=== PATIENT | male | born 1990 | race Caucasian/White ===

== ENCOUNTER 2019-10-24 12:11 | Emergency (ER) | payer OTHER ==
[~2019-10-24] VITALS: Ht 182.9 cm; Wt 90.7 kg
[2019-10-24 13:19] VITALS: BP 137/81
--- NOTE | 2019-10-24 13:25 | RAD ---
Examination: FINGER(S) LEFT History: Pain and laceration involving the second and fourth digits due to compression injury Comparison/Correlation: None Findings: Total of 3 images of the left hand were obtained. Evaluation of the fourth digit on the lateral view is limited due to positioning. Joint spaces are normal. No displaced fracture or bone destruction. Soft tissues are grossly unremarkable. No radiopaque foreign body. No degenerative changes. Impression: No suspicious process. Electronically signed by: Srinivasa Waters MD (10/24/2019 1:22 PM) [facility]
[2019-10-24] MEDS ORDERED: HYDR-3165 PO (13:29)
--- NOTE | 2019-10-24 13:29 | PHYS DOC ---
Past History Past Medical History: No Pertinent History Past Surgical History: Other Additional Past Surgical Histo: RIGHT WRIST AND ELBOW Additional Smoking Information: CHEWS TOBACCO Alcohol Use: Occasionally Drug Use: None Adult General Chief Complaint Chief Complaint: LACERATION/AVULSION [facility] HPI 28-year-old male presents with crush injury and laceration of the left 2nd-4th digits. 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 After he got his fingers out, he noticed horizontal lacerations of the fingernail on the second and fourth digit. He has a small laceration outside of the nailbed on the third digit. The sites started to bleed. He was worried about fracture so came to the emergency room. Patient denies any other injuries. Review of Systems Review of Systems Constitutional: Denies fever or chills [] Eyes: Denies change in visual acuity, redness, or eye pain [] HENT: Denies nasal congestion or sore throat [] Respiratory: Denies cough or shortness of breath [] Cardiovascular: No additional information not addressed in HPI [] GI: Denies abdominal pain, nausea, vomiting, bloody stools or diarrhea [] : Denies dysuria or hematuria [] Musculoskeletal: Crush injuries and lacerations of the left fingers[] Integument: Denies rash or skin lesions [] Neurologic: Denies headache, focal weakness or sensory changes [] Endocrine: Denies polyuria or polydipsia [] All other systems were reviewed and found to be within normal limits, except as documented in this note. Allergies Allergies Allergies Coded Allergies Type Severity Reaction Last Updated Verified No Known Drug Allergies 10/24/19 No Physical Exam Physical Exam Constitutional: Well developed, well nourished, no acute distress, non-toxic appearance. [] HENT: Normocephalic, atraumatic, bilateral external ears normal, oropharynx moist, no oral exudates, nose normal. [] Eyes: PERRLA, EOMI, conjunctiva normal, no discharge. [] Neck: Normal range of motion, no tenderness, supple, no stridor. [] Cardiovascular:Heart rate regular rhythm, no murmur [] Lungs & Thorax: Bilateral breath sounds clear to auscultation [] Abdomen: Bowel sounds normal, soft, no tenderness, no masses, no pulsatile masses. [] Skin: Warm, dry, no erythema, no rash. [] Back: No tenderness, no CVA tenderness. [] Extremities: The patient has lacerations at least through the fingernails of the left second and fourth digit. Unclear if the nail bed is involved. Very superficial 5 mm laceration of the left third digit.[] Neurologic: Alert and oriented X 3, normal motor function, normal sensory function, no focal deficits noted. [] Psychologic: Affect normal, judgement normal, mood normal. [] Current Patient Data Vital Signs Vital Signs Date Time Temp Pulse Resp B/P (MAP) Pulse Ox O2 Delivery O2 Flow Rate FiO2 10/24/19 12:20 98.7 92 16 100 Room Air EKG EKG [] Radiology/Procedures Radiology/Procedures [] Course & Med Decision Making Course & Med Decision Making Pertinent Labs and Imaging studies reviewed. (See chart for details) I discussed with the patient the option of numbing of the fingers and removing the fingernails to evaluate the nailbed more fully. The patient does not feel this is necessary. His x-rays negative for fracture. We will thoroughly clean the wounds and dress them. I advised him that his phenytoin will likely fall off and he may have deformed fingernails in the future. He is okay with this. His tetanus is up-to-date. I will discharge him on [place] 5/325 for pain. He is stable for discharge at this time. [] Dragon Disclaimer Dragon Disclaimer This electronic medical record was generated, in whole or in part, using a voice recognition dictation system. Departure Departure: Impression: Primary Impression: Laceration of left index finger Additional Impression: Laceration of left ring finger Disposition: 01 HOME, SELF-CARE Condition: STABLE Referrals: PCP,NO (PCP) Patient Instructions: Fingernail or Toenail Loss, Fingertip Laceration Scripts Hydrocodone Bit/Acetaminophen (NORCO 5-325 TABLET) 1 Each Tablet 1 TAB PO PRN Q6HRS PRN for PAIN, #14 TAB 0 Refills Prov: ANTONIO GOLDSTEIN DO 10/24/19 Problem Qualifiers Primary Impression: Laceration of left index finger Encounter type: initial encounter Damage to nail status: with damage Foreign body presence: without foreign body Qualified Codes: S61.311A - Laceration without foreign body of left index finger with damage to nail, initial encounter Additional Impression: Laceration of left ring finger Encounter type: initial encounter Damage to nail status: with damage Foreign body presence: without foreign body Qualified Codes: S61.315A - Laceration without foreign body of left ring finger with damage to nail, initial encounter ANTONIO GOLDSTEIN DO Oct 24, 2019 13:29
== END 2019-10-24 13:40 | disposition home or self-care (01) ==
LOC: ER 12:11
DX: S61.311A Laceration without foreign body of left index finger with damage to nail, initial encounter (principal); S61.315A Laceration without foreign body of left ring finger with damage to nail, initial encounter; F17.220 Nicotine dependence, chewing tobacco, uncomplicated; W23.0XXA Caught, crushed, jammed, or pinched between moving objects, initial encounter; Y93.89 Activity, other specified; Y92.89 Other specified places as the place of occurrence of the external cause; Y99.8 Other external cause status
CPT/HCPCS: 73140; 99284

== ENCOUNTER 2020-07-24 17:14 | Emergency (ER) | payer BC, OTHER ==
[~2020-07-24] VITALS: Ht 182.9 cm; Wt 89.0 kg
[~2020-07-24 17:14] MED LIST: HYDR-3165 PO
[2020-07-24 17:30] VITALS: BP 125/65
[2020-07-24] MEDS ORDERED: NORMAL SALINE IV SCH (18:15)
[2020-07-24] MEDS ORDERED: IV NORMAL SALINE 1,000ML 1,000 ML IV ONE (18:15)
[2020-07-24] MEDS ORDERED: ONDANSETRON ODT 4 MG TAB.RAPDIS PO ONE (18:15)
--- NOTE | 2020-07-24 18:21 | PHYS DOC ---
Past History Past Medical History: No Pertinent History Additional Past Medical Histor: Has been told possible crohns Past Surgical History: Other Additional Past Surgical Histo: RIGHT WRIST AND ELBOW Additional Smoking Information: Chews Alcohol Use: Occasionally Drug Use: None Adult General Chief Complaint Chief Complaint: ABDOMINAL PAIN HPI HPI Patient is a 29-year-old male who presents with abdominal pain. This is an acute on chronic problem per patient that has been going on for past 12 years. Reports that it acutely worsened today without any known inciting event, ingestion or trauma. Nothing known makes better, eating makes worse. Pain described as sharp and focal to the right lower quadrant without radiation. Patient presented to work but was subsequently turned away due to fever and instructed to present to our ER for evaluation. Patient reports driving in the car worsened his abdominal pain. He has no history of abdominal trauma in the past. He reports general malaise, nausea, and x2 episodes of nonbloody nonbilious vomit. 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 See HPI for pertinent positives and negative responses, other dodd all other systems are negative, non-pertinent or non-contributory Current Medications Current Medications Current Medications Medications (Trade) Dose Ordered Sig/Anna Start Time Stop Time Status Last Admin Dose Admin Ondansetron HCl (Zofran Odt) 4 mg 1X ONCE 07/24/20 18:15 07/24/20 18:16 DC Sodium Chloride 1,340 ml @ 2,340 mls/hr Q35M 07/24/20 18:15 Allergies Allergies Allergies Coded Allergies Type Severity Reaction Last Updated Verified No Known Drug Allergies 07/24/20 No Physical Exam Physical Exam Constitutional: Well developed, well nourished, appears in mild distress due to pain, non-toxic appearance. HENT: Normocephalic, atraumatic, bilateral external ears normal, oropharynx moist, no oral exudates, nose normal. Eyes: PERRLA, EOMI, conjunctiva normal, no discharge. Neck: Normal range of motion, no tenderness, supple, no stridor. Cardiovascular: Heart rate tachycardic, sinus rhythm, no murmurs rubs or gallops Lungs & Thorax: Bilateral breath sounds clear to auscultation Abdomen: Bowel sounds normal, soft, tenderness to right lower quadrant over McBurney's point, negative Sanchez sign, no masses, no pulsatile masses, no rebound, guarding present. No peritoneal signs Skin: Warm, dry, no erythema, no rash. Back: No tenderness, no CVA tenderness. Extremities: No tenderness, no cyanosis, no clubbing, ROM intact, no edema. Neurologic: Alert and oriented X 3, grossly normal motor & sensory function, no focal deficits noted. Psychologic: Affect normal, judgement normal, anxious mood Current Patient Data Vital Signs Vital Signs Date Time Temp Pulse Resp B/P (MAP) Pulse Ox O2 Delivery O2 Flow Rate FiO2 07/24/20 17:30 101.7 122 20 125/65 (85) 100 Room Air Lab Results Laboratory Tests Test 07/24/20 17:45 White Blood Count 8.3 x10^3/uL (4.0-11.0) Red Blood Count 4.81 x10^6/uL (4.30-5.70) Hemoglobin 15.5 g/dL (13.0-17.5) Hematocrit 45.5 % (39.0-53.0) Mean Corpuscular Volume 95 fL (79-100) Mean Corpuscular Hemoglobin 32 pg (25-35) Mean Corpuscular Hemoglobin Concent 34 g/dL (31-37) Red Cell Distribution Width 13.0 % (11.5-14.5) Platelet Count 188 x10^3/uL (140-400) Neutrophils (%) (Auto) 93 % (31-73) Lymphocytes (%) (Auto) 4 % (24-48) Monocytes (%) (Auto) 2 % (0-9) Eosinophils (%) (Auto) 1 % (0-3) Basophils (%) (Auto) 0 % (0-3) Neutrophils # (Auto) 7.7 x10^3uL (1.8-7.7) Lymphocytes # (Auto) 0.3 x10^3/uL (1.0-4.8) Monocytes # (Auto) 0.2 x10^3/uL (0.0-1.1) Eosinophils # (Auto) 0.1 x10^3/uL (0.0-0.7) Basophils # (Auto) 0.0 x10^3/uL (0.0-0.2) Sodium Level 137 mmol/L (136-145) Potassium Level 3.7 mmol/L (3.5-5.1) Chloride Level 101 mmol/L (98-107) Carbon Dioxide Level 26 mmol/L (21-32) Anion Gap 10 (6-14) Blood Urea Nitrogen 8 mg/dL (8-26) Creatinine 1.1 mg/dL (0.7-1.3) Estimated GFR (Cockcroft-Gault) 78.1 BUN/Creatinine Ratio 7 (6-20) Glucose Level 109 mg/dL (70-99) Lactic Acid Level 1.8 mmol/L (0.4-2.0) Calcium Level 9.7 mg/dL (8.5-10.1) Total Bilirubin 1.1 mg/dL (0.2-1.0) Aspartate Amino Transf (AST/SGOT) 20 U/L (15-37) Alanine Aminotransferase (ALT/SGPT) 24 U/L (16-63) Alkaline Phosphatase 66 U/L (46-116) Total Protein 6.8 g/dL (6.4-8.2) Albumin 3.6 g/dL (3.4-5.0) Albumin/Globulin Ratio 1.1 (1.0-1.7) EKG EKG [] Radiology/Procedures Radiology/Procedures PROCEDURE: CT ABDOMEN PELVIS WO CONTRAST INDICATION: Reason: Epigastric and RLQ pain, Headache, nausea, vomiting, chills / Spl. Instructions: / History: . COMPARISON: None. TECHNIQUE: Axial CT images obtained through the abdomen and pelvis without contrast. Limited assessment of solid organ structures and vasculature secondary to lack of intravenous contrast.. One or more of the following individualized dose reduction techniques were utilized for this examination: 1. Automated exposure control; 2. Adjustment of the mA and/or kV according to patient size; 3. Use of iterative reconstruction technique. FINDINGS: Bilateral fat-containing inguinal hernia. Small fat-containing umbilical hernia. Abdominal aorta is not aneurysmal. No intrahepatic bile duct dilation. No peripancreatic fluid collection. Spleen is unremarkable. No hydronephrosis. Urinary bladder is partially distended with prominent wall. No radiopaque obstructive ureter stone. Tubular structure in the right lower quadrant measuring up to about 10 mm with some edema to the fat seen adjacent to the tip. No dilated loops of bowel to suggest obstruction. 12 mm lucent lesion the L4 vertebral body with low density within which could be from hemangioma or lipoma. IMPRESSION: * Blind-ending tubular structure in the right lower quadrant which could be seen with a mildly dilated appendix. There is also edema seen to the fat adjacent to the tip. Would correlate with symptoms in the region since this can be seen with an early tip appendicitis in the correct clinical context. * Urinary bladder wall is mildly prominent but there is no definite adjacent inflammatory changes at could be from lack of distention but mild cystitis not excluded. Report called to the emergency department at 7:04 PM Electronically signed by: Anali Espino MD (07/24/2020 7:11 PM) [id number] DICTATED AND SIGNED BY: ANALI ESPINO MD DATE: 07/24/201910 Heart Score HEART Score for Chest Pain: HEART Score for Chest Pain Response (Comments) Value History Slighlty/Non-Suspicious 0 ECG Normal 0 Age < 45 0 Risk Factors No Risk Factors 0 Troponin < Normal Limit 0 Total 0 Risk Factors: Risk Factors: DM, Current or recent (<one month) smoker, HTN, HLP, family history of CAD, obesity. Risk Scores: Risk Factors: DM, Current or recent (<one month) smoker, HTN, HLP, family history of CAD, obesity. Course & Med Decision Making Course & Med Decision Making Ambulatory but patient in obvious pain presented to ER and seen by myself Airway patent, breathing unlabored, vitals consistent for mild tachycardia and febrile Comprehensive history and physical examination performed, subsequent diagnostic work-up ordered IV access obtained, 30 mg/kg fluid resuscitation started. Work-up reviewed and consistent with appendicitis. On-call surgeon, Dr. Reno, was contacted and case discussed. He agreed for need to transfer to [facility] for continued observation overnight and repeat examination with consideration for surgery in the morning Dr. Trinidad, on-call hospitalist at [facility] called and case discussed. He agreed to admission for continued medical care I discussed plan of care with patient who is amenable. At this time, patient not wanting to be transported to [facility] via ambulance. He has full capacity at this time and was able to weigh risks and benefits of such decision I discussed removing all IVs from him in route. I discussed potential consequences of not traveling by ambulance. He will not be able to receive scheduled antibiotics IV prior to transport, I reiterated he will need these on arrival at new facility Ultimately, all questions and concerns addressed prior to ER departure in stable condition for personal transport to [facility] for direct admission and continued medical and potential surgical care Breanna Disclaimer Breanna Disclaimer This electronic medical record was generated, in whole or in part, using a voice recognition dictation system. Departure Departure: Impression: Primary Impression: Appendicitis Additional Impression: Sepsis Disposition: ADMITTED INPT THIS HOSP (TRANSFER TO [facility] FOR ADMISSION) Admitting Physician: Other (DR. TRINIDAD) Condition: STABLE Referrals: PCP,NO (PCP) Problem Qualifiers ADAM ROSS DO Jul 24, 2020 18:21
[2020-07-24] MEDS ORDERED: IOHEXOL 300 MG/ML 75 ML VIAL. IV ONE (18:30)
[2020-07-24] MEDS ORDERED: ACETAMINOPHEN 325 MG TABLET PO ONE (18:30)
[2020-07-24 18:37] LABS: BASO % 0 % (0-3); EOS # 0.1 x10^3/uL (0.0-0.7); EOS % 1 % (0-3); HEMATOCRIT 45.5 % (39.0-53.0); HEMOGLOBIN 15.5 g/dL (13.0-17.5); LYMPH # 0.3 x10^3/uL (1.0-4.8); LYMPH % 4 % (24-48); MEAN CORPUSCULAR HEMOGLOBIN 32 pg (25-35); MEAN CORPUSCULAR HGB CONC 34 g/dL (31-37); MEAN CORPUSCULAR VOLUME 95 fL (79-100); MONO # 0.2 x10^3/uL (0.0-1.1); MONO % 2 % (0-9); NEUT # 7.7 x10^3uL (1.8-7.7); NEUT % 93 % (31-73); PLATELET COUNT 188 x10^3/uL (140-400); RED BLOOD COUNT 4.81 x10^6/uL (4.30-5.70); WHITE BLOOD COUNT 8.3 x10^3/uL (4.0-11.0)
[2020-07-24 18:46] LABS: CALCIUM 9.7 mg/dL (8.5-10.1); CREATININE 1.1 mg/dL (0.7-1.3); GFR 78.1; POTASSIUM 3.7 mmol/L (3.5-5.1)
[2020-07-24 18:52] LABS: ALBUMIN 3.6 g/dL (3.4-5.0); ALBUMIN/GLOBULIN RATIO 1.1 (1.0-1.7); TOTAL BILIRUBIN 1.1 mg/dL (0.2-1.0); TOTAL PROTEIN 6.8 g/dL (6.4-8.2)
--- NOTE | 2020-07-24 19:14 | RAD ---
INDICATION: Reason: Epigastric and RLQ pain, Headache, nausea, vomiting, chills / Spl. Instructions: / History: . COMPARISON: None. TECHNIQUE: Axial CT images obtained through the abdomen and pelvis without contrast. Limited assessment of solid organ structures and vasculature secondary to lack of intravenous contrast.. One or more of the following individualized dose reduction techniques were utilized for this examination: 1. Automated exposure control; 2. Adjustment of the mA and/or kV according to patient size; 3. Use of iterative reconstruction technique. FINDINGS: Bilateral fat-containing inguinal hernia. Small fat-containing umbilical hernia. Abdominal aorta is not aneurysmal. No intrahepatic bile duct dilation. No peripancreatic fluid collection. Spleen is unremarkable. No hydronephrosis. Urinary bladder is partially distended with prominent wall. No radiopaque obstructive ureter stone. Tubular structure in the right lower quadrant measuring up to about 10 mm with some edema to the fat seen adjacent to the tip. No dilated loops of bowel to suggest obstruction. 12 mm lucent lesion the L4 vertebral body with low density within which could be from hemangioma or lipoma. IMPRESSION: * Blind-ending tubular structure in the right lower quadrant which could be seen with a mildly dilated appendix. There is also edema seen to the fat adjacent to the tip. Would correlate with symptoms in the region since this can be seen with an early tip appendicitis in the correct clinical context. * Urinary bladder wall is mildly prominent but there is no definite adjacent inflammatory changes at could be from lack of distention but mild cystitis not excluded. Report called to the emergency department at 7:04 PM Electronically signed by: Brayan Tay MD (07/24/2020 7:11 PM) [id number]
--- NOTE | 2020-07-24 19:27 | RAD ---
INDICATION: Reason: Headache, nausea, vomiting, chills, chest and abdomen pain / Spl. Instructions: / History: COMPARISON: None. FINDINGS: Single view of chest obtained. No focal airspace consolidation. Cardiomediastinal contour unremarkable. No acute osseous abnormality. IMPRESSION: * No focal airspace consolidation or edema. Electronically signed by: Brayan Tay MD (07/24/2020 7:24 PM) [id number]
--- NOTE | 2020-07-25 03:00 | EKG ---
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
== END 2020-07-24 21:40 | disposition short-term general hospital (02) ==
LOC: ER 17:14
DX: K37 Unspecified appendicitis (principal); A41.9 Sepsis, unspecified organism
CPT/HCPCS: 36415; 71045; 74176; 80053; 83605; 83690; 85025; 87040; 93005; 96360; 96361; 99285; C9803; J7030; Q0162; U0003

== ENCOUNTER 2021-11-25 15:48 | Emergency (ER) | payer BC ==
[~2021-11-25] VITALS: Ht 182.9 cm; Wt 89.0 kg
[2021-11-25 16:03] VITALS: BP 125/65
[2021-11-25] MEDS ORDERED: LIDOCAINE 2% 20 ML VIAL. IJ ONE (16:15)
--- NOTE | 2021-11-25 16:49 | PHYS DOC ---
Past History Additional Past Medical Histor: Has been told possible crohns Past Surgical History: Appendectomy, Other Additional Past Surgical Histo: RIGHT WRIST AND ELBOW Alcohol Use: Occasionally Drug Use: None General Adult EDM: Chief Complaint: FINGER INJURY HPI: HPI: Patient is a 31 year old male who presents with laceration to the knuckle of the PIP joint of his right digit 4. 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 His tetanus vaccination is up-to-date. He has no other complaints at this time. Review of Systems: Review of Systems: ROS negative or noncontributory except as mentioned in HPI. Current Medications: Current Meds: Current Medications Medications (Trade) Dose Ordered Sig/Anna Start Time Stop Time Status Last Admin Dose Admin Lidocaine HCl (Lidocaine 2%) 20 ml 1X ONCE 11/25/21 16:15 11/25/21 16:18 DC 11/25/21 16:15 20 ML Allergies: Allergies: Allergies Coded Allergies Type Severity Reaction Last Updated Verified Iodinated Contrast Media Allergy Unknown 07/24/20 Yes Physical Exam: PE: Constitutional: Well developed, well nourished, no acute distress, non-toxic appearance. HENT: Normocephalic, atraumatic, bilateral external ears normal, nose normal. Eyes: EOMI, conjunctiva normal, no discharge. Neck: Normal range of motion, no stridor. Skin: 1 cm superficial laceration noted to knuckle overlying PIP joint of the right ring finger. Skin otherwise warm, dry, no erythema, no rash. Extremities: See above for laceration note, on exploration no tendon involvement, active range of motion intact. Extremities otherwise no tendernes s, no cyanosis, no clubbing, ROM intact, no edema. Neurologic: Alert and oriented x4, no focal deficits noted. Current Patient Data: Vital Signs: Vital Signs Date Time Temp Pulse Resp B/P (MAP) Pulse Ox O2 Delivery O2 Flow Rate FiO2 11/25/21 16:03 98.3 79 16 125/65 (85) 97 Room Air Heart Score: C/O Chest Pain: No Course & Med Decision Making: Course & Med Decision Making Pertinent Labs and Imaging studies reviewed. (See chart for details) [employer] Disclaimer: [employer] Disclaimer: This electronic medical record was generated, in whole or in part, using a voice recognition dictation system. Laceration Repair Lac Repair Indication: Laceration to PIP knuckle right digit 4 Procedure: The patient was placed in the appropriate position and anesthesia around the laceration was digit block with 2% lidocaine plain, 4 cc. The area was then cleansed with chlorhexidine swab and irrigated with normal saline. The laceration was closed with 2 simple interrupted 4-0 nylon sutures. The wound area was then dressed with nonadhesive gauze. Total repaired wound length: 1 cm. Other Items: The patient tolerated the procedure very well. Complications: No complications. Departure Departure: Impression: Primary Impression: Laceration without foreign body of right ring finger without damage to nail, initial encounter Disposition: HOME / SELF CARE / HOMELESS Condition: IMPROVED Referrals: PCP,AUTUMN (PCP) Patient Instructions: Sutured Wound Care, Syru-sl-Nrna Additional Instructions: EMERGENCY DEPARTMENT GENERAL DISCHARGE INSTRUCTIONS Thank you for coming to [facility] (ED) today and trusting us with you care. We trust that you had a positive experience in our Emergency Department. If you wish to speak to the department management, you may call the director at [phone]. YOUR FOLLOW UP INSTRUCTIONS ARE FOLLOWS: 1. Follow up with your primary care doctor. If you do not have a primary doctor, please ask for a resource list of physicians or clinics that may be able to assist you with follow up care. 2. The emergency provider has interpreted your imaging studies, if any were ordered. The radiology phone triage specialist also reviewed them. If there is a change in the findings, you will be notified in 48 hours when at all possible. 3. If a lab test or culture has been done, your results will be reviewed and you will be notified if you need a change in treatment. 4. Follow instructions verbalized to you and refer to the printouts if needed. Sutures may be removed in 10 days. ADDITIONAL INSTRUCTIONS AND INFORMATION: 1. Your care today has been supervised by a physician who is specially trained in emergency care. Many problems require more than one evaluation for a complete diagnosis and treatment. We recommend that you schedule your follow up appointment as recommended to ensure complete treatment of you illness or injury. If you are unable to obtain follow up care and continue to have a problem, or if your condition worsens, we recommend that you return to the ED. 2. We are not able to safely determine your condition over the phone nor are we able to give sound medical advice over the phone. For these safety reasons, if you call for medical advice we will ask you to come to the ED for further evaluation. 3. If you have any questions regarding these discharge instructions please call the ED at [phone]. SAFETY INFORMATION: In the interest of safety, wellness, and injury prevention; we encourage you to wear your seat belt, if you smoke; quite smoking, and we encourage family to use a protective helmet for bicycling and other sporting events that present an increased risk for head injury. IF YOUR SYMPTOMS WORSEN OR NEW SYMPTOMS DEVELOP, OR YOU HAVE CONCERNS ABOUT YOUR CONDITION; OR IF YOUR CONDITION WORSENS WHILE YOU ARE WAITING FOR YOUR FOLLOW UP APPOINTMENT; EITHER CONTACT YOUR PRIMARY CARE DOCTOR, THE PHYSICIAN WHOSE NAME AND NUMBER YOU WERE GIVEN, OR RETURN TO THE ED IMMEDIATELY. SHAMA KENDALL Nov 25, 2021 16:49
== END 2021-11-25 17:07 | disposition home or self-care (01) ==
LOC: ER 15:48
DX: S61.214A Laceration without foreign body of right ring finger without damage to nail, initial encounter (principal); Z91.041 Radiographic dye allergy status; W26.8XXA Contact with other sharp object(s), not elsewhere classified, initial encounter; Y93.89 Activity, other specified; Y92.89 Other specified places as the place of occurrence of the external cause; Y99.8 Other external cause status
CPT/HCPCS: 12001; 99282; J2001